=== PATIENT | female | born 1985 | race Caucasian/White ===

== ENCOUNTER 2016-12-18 10:06 | Emergency (ER) | payer SELFPAY ==
[~2016-12-18] VITALS: Ht 162.6 cm; Wt 68.0 kg
[2016-12-18] MEDS ORDERED: DIPHTH,PERTUSS(ACELL),TET TOX 0.5 ML DISP.SYRIN. VAX IM ONE (10:15)
[2016-12-18 10:16] VITALS: BP 139/57
--- NOTE | 2016-12-18 10:40 | PHYS DOC ---
Past Medical History Past Medical History: No Pertinent History Past Surgical History: Other Additional Past Surgical Histo: RIGHT KNEE SX Alcohol Use: Occasionally Drug Use: Marijuana Adult General Chief Complaint Chief Complaint: SKIN PROBLEM HPI HPI Patient is a 31 year old female with no significant medical history who presents with swelling to the right antecubital joint that began 3 days ago. Patient states she donates plasma on a monthly basis. She states she donated plasma 8 days ago then 5 days later noted the swelling on the right antecubital joint. She has also been at the [employer] for a couple days. Patient is concerned she could've an infection to the area. Denies any fever. Review of Systems Review of Systems Constitutional: See history of present illness Musculoskeletal: Denies back pain or joint pain [] Integument: swelling to the right antecubital joint Neurologic: Denies headache, focal weakness or sensory changes [] Endocrine: Denies polyuria or polydipsia [] Current Medications Current Medications Current Medications Medications (Trade) Dose Ordered Sig/Arlin Start Time Stop Time Status Last Admin Dose Admin Diphtheria/ Tetanus/Acell Pertussis (Boostrix) 0.5 ml ONCE ONCE 12/18/16 10:15 12/18/16 10:18 DC 12/18/16 10:15 0.5 ML Allergies Allergies Allergies Coded Allergies Type Severity Reaction Last Updated Verified No Known Drug Allergies 12/18/16 No Physical Exam Physical Exam Constitutional: Well developed, well nourished, no acute distress, non-toxic appearance. [] HENT: Normocephalic, atraumatic, bilateral external ears normal, oropharynx moist, no oral exudates, nose normal. [] Skin: Right antecubital joint with an area of induration approximately 3 x 3 cm with cellulitis. The area is warm to touch and TTP but not fluctuant. +2 right radial pulse. Adequate radial medial and ulnar sensation to the right upper extremity. Back: No tenderness, no CVA tenderness. [] Extremities: No tenderness, no cyanosis, no clubbing, ROM intact, no edema. [] Neurologic: Alert and oriented X 3, normal motor function, normal sensory function, no focal deficits noted. [] Psychologic: Affect normal, judgement normal, mood normal. [] Current Patient Data Vital Signs Vital Signs Date Time Temp Pulse Resp B/P (MAP) Pulse Ox O2 Delivery O2 Flow Rate FiO2 12/18/16 10:16 98.1 115 16 100 Room Air 98.1 EKG EKG [] Radiology/Procedures Radiology/Procedures [] Course & Med Decision Making Course & Med Decision Making Pertinent Labs and Imaging studies reviewed. (See chart for details) Patient is in the ED to be evaluated for swelling and redness to the right antecubital joint that began 3 days ago. She had donated plasma 5 days earlier to the onset of the abscess. Venous Doppler of the right upper extremity preliminary read shows patient has complex fluid collection on the right antecubital fossa. I offered to drain this abscesses. Patient has refused. She' ll be discharged with clindamycin for 10 days. She was instructed to apply warm compresses to the area. Follow-up with the PCP in 1-2 weeks. Provided return precautions and discharged in stable condition. Dragon Disclaimer Dragon Disclaimer This electronic medical record was generated, in whole or in part, using a voice recognition dictation system. Departure Departure Impression: Primary Impression: Abscess of right upper arm and forearm Additional Impression: Cellulitis of upper extremity Disposition: 01 HOME, SELF-CARE Condition: STABLE Patient Instructions: Abscess, Cellulitis, [id number] Additional Instructions: You have an abscess to the right antecubital joint. Apply warm compresses to the area twice a day. Take the prescribed antibiotics until completed. Keep the area clean and dry. Come back to the ED if wound condition worsens or you develop a fever. Follow-up with your doctor in 1-2 weeks. Scripts Hydrocodone/Apap 5-325 (NORCO 5-325 TABLET) 1 Each Tablet 1 TAB PO PRN Q6HRS Y for PAIN, #12 TAB 0 Refills Prov: BALJIT NAM APRN 12/18/16 Clindamycin Hcl (CLINDAMYCIN HCL) 150 Mg Capsule 3 CAP PO TID, #90 CAP Prov: BALJIT NAM APRN 12/18/16 Problem Qualifiers Additional Impression: Cellulitis of upper extremity Laterality: right Qualified Codes: L03.113 - Cellulitis of right upper limb BALJIT NAM APRN Dec 18, 2016 10:40
[2016-12-18] MEDS ORDERED: HYDR-971 PO (12:07)
[2016-12-18] MEDS ORDERED: CLIN150C14 PO (12:07)
--- NOTE | 2016-12-18 12:18 | RAD ---
Right upper extremity venous Doppler History: Swelling post plasma donation Right upper extremity venous Doppler study was performed. The jugular vein is compressible and has flow with color imaging. There is flow with color imaging in the subclavian vein. Axillary and brachial veins have flow with color imaging and are compressible. There is no normal antegrade flow with augmentation. The basilic vein is compressible and has flow with color imaging. Cephalic vein is compressible and has flow with color imaging. There is soft tissue swelling. There is a complex fluid collection at the antecubital fossa, there is swirling of the material which suggests fluid and an abscess is possible. Impression: 1. 1.7 x 1.6 cm complex fluid collection possible abscess at the antecubital fossa. 2. No deep venous thrombosis.
== END 2016-12-18 12:19 | disposition home or self-care (01) ==
LOC: ER 10:06
DX: L03.113 Cellulitis of right upper limb (principal); F12.10 Cannabis abuse, uncomplicated
CPT/HCPCS: 90471; 90715; 93971; 99284-25